=== PATIENT | female | born 1985 | race Caucasian/White ===

== ENCOUNTER 2018-02-19 05:22 | Inpatient (IN) | payer SELFPAY ==
[2018-02-19 05:44] LABS: #Eosinphils 0.2 thou/uL (0.0-0.7); #Lymphocytes 2.5 thou/uL (1.20-3.40); #Monocytes 0.5 thou/uL (0.11-0.59); #Neutrophils 6.8 thou/uL (1.40-6.50); %Basophils 0.4 % (0.0-1.0); %Eosinophils 1.9 % (0.0-10.0); %Lymphocytes 24.9 % (21.0-51.0); %Monocytes 5.4 % (0.0-10.0); %Neutrophils 67.5 % (42.0-75.0); Hemoglobin 16.5 g/dL (12.0-16.0); Mean Corpuscular HGB CONC 34.1 g/dL (32.0-36.0); Mean Corpuscular Hemoglobin 34.1 pg (27.0-31.0); Mean Platelet Volume 7.1 fL (7.4-10.4); Platelet Count 249 thou/uL (130-400); RBC Distribution Width 14.7 % (11.5-14.5); Red Blood Cell (RBC) Count 4.83 mill/uL (4.20-5.40); White Blood Cell (WBC) Count 10.1 thou/uL (4.8-10.8)
[2018-02-19] MEDS ORDERED: Lorazepam 2 MG/ML VIAL ONE (05:45)
[2018-02-19] MEDS ORDERED: Morphine 4 MG/ML VIAL ONE ×2 (05:45→09:28)
[2018-02-19] MEDS ORDERED: Ondansetron HCl/PF 4 MG/2 ML Vial ONE (05:45)
[2018-02-19 06:12] LABS: CKMB 0.5 ng/mL (0-6.6); Troponin I Less than 0.010 ng/mL (< 0.028)
[2018-02-19 06:24] LABS: ALT (SGPT) 17 U/L (8-55); AST (SGOT) 94 U/L (5-34); Albumin 4.4 g/dL (3.5-5.0); Alcohol 30 mg/dL (Less than 10); Alkaline Phosphatase 160 U/L (40-150); Anion Gap 25 mmol/L (10-20); BUN (Urea Nitrogen) 5 mg/dL (7.0-18.7); Bilirubin, Total 1.8 mg/dL (0.2-1.2); Calc. Creatinine Clearance 0 mL/min (70-130); Calcium 9.5 mg/dL (7.8-10.44); Carbon Dioxide 20 mmol/L (22-29); Chloride 97 mmol/L (98-107); Estimated GFR-MDRD 90; Globulin 4.4 g/dL (2.4-3.5); Glucose 212 mg/dL (70-105); Lipase 92 U/L (8-78); Potassium 3.1 mmol/L (3.5-5.1); Protein, Total 8.8 g/dL (6.0-8.3); Sodium 139 mmol/L (136-145)
[2018-02-19] MEDS ORDERED: Promethazine HCl 25 MG/ML VIAL ONE ×2 (08:07→09:28)
[2018-02-19 09:44] LABS: Bilirubin Small (Negative); Blood, Urine Negative (Negative); Clarity CLEAR (Clear); Glucose, Urine (Dipstick) 100 mg/dL (Negative); Leukocyte Small (Negative); Nitrite Positive (Negative); Protein, Urine (Dipstick) 100 mg/dL (Neg-Trace); Specific Gravity, Urine 1.035 (1.002-1.036)
[2018-02-19 09:46] LABS: Hyaline Casts/LPF 0-3 HYALINE CAST LPF (0-3 Hyaline); Pathc Cast-AUWi Flag 0.14 (0-2.49)
[2018-02-19 09:53] LABS: Bacteria/HPF 1+ HPF (None Seen); RBC/HPF 0-3 HPF (0-3); Renal Epithelial 0-3 HPF (0-3)
[2018-02-19 10:29] LABS: Pregnancy Test - Urine (BHCG) Negative (Negative); Pregu Control Background? CLEAR/WHITE (CLR/WHITE); Pregu Control Bar Appear? YES (CONTROL BAR); Specific Gravity 1.035 (1.002-1.036)
[2018-02-19] MEDS ORDERED: Acetaminophen 325 MG TAB PO PRN ×2 (11:33→12:10)
[2018-02-19] MEDS ORDERED: Ondansetron ODT 4 MG TAB SL PRN (11:33)
[2018-02-19] MEDS ORDERED: HYDROcodone/Acetaminophen 5/325 mg Tablet PO PRN ×2 (11:33)
[2018-02-19] MEDS ORDERED: Sodium Chloride 0.9% 1,000 ML IV SCH (11:33)
[2018-02-19] MEDS ORDERED: Ondansetron HCl/PF 4 MG/2 ML Vial IVP PRN (11:33)
[2018-02-19] MEDS: Potassium Chloride 20 MEQ in Premix Bag 1 BAG IVPB SCH ×2 (11:35→11:36)
--- NOTE | 2018-02-19 11:39 | HP ---
PRIMARY CARE PHYSICIAN: [facility] call admission. REASON FOR ADMISSION: Intractable nausea, vomiting, epigastric abdominal pain, suspected pancreatitis, dehydration. HISTORY OF PRESENT ILLNESS: This is a 32-year-old female, who has a remote history of alcohol abuse. She quit drinking alcohol for a period of time. Last Thursday, patient drank one bottle of vodka. Since then, patient has epigastric abdominal pain, which radiates to back, associated with nausea and vomiting. The patient is not able to keep anything down. She only tried to eat crackers a couple of days ago, but she was not holding. Her pain kept getting worse. She was feeling dehydrated, weak, and dizzy. She had today little amount of diarrhea. She denies any hematemesis. She denies any hematochezia or melena. She denies any fever or chills. She denies any UTI symptoms. She denies any loss of consciousness or fall or syncope. She denies any chest pain, heartburn, palpitations. In emergency room today, the patient had routine blood test done, which showed hypokalemia, anion gap acidosis, and abnormal LFT. Her lipase was slightly elevated. Her urinalysis was also suggestive of UTI. Patient reports that, when she was alcoholic at that time, she had pancreatitis in the past and her presentation is similar to past. PAST MEDICAL HISTORY: History of alcoholic pancreatitis, history of alcohol abuse, obesity, irritable bowel syndrome. PAST SURGICAL HISTORY: Appendicectomy. PAST PSYCHIATRIC HISTORY: Reviewed and negative. SOCIAL HISTORY: The patient has a history of alcoholism in the past, but she quit drinking for several months and then she restarted drinking since Thursday. She smokes variable number of cigarettes on a daily basis. She denies any other illicit drugs. FAMILY HISTORY: No strong family history of premature coronary artery disease, stroke, or cancer. ALLERGIES: No known drug allergy. CURRENT HOME MEDICATIONS: Patient is not taking any prescribed or non- prescribed medication. No history of NSAID abuse. EMERGENCY ROOM COURSE: Patient is given IV fluid 3 liter and maintenance fluid started, potassium chloride 20 mEq, Phenergan 25 mg, Zofran, Ativan 1 mg, and morphine 8 mg given. REVIEW OF SYSTEMS: All review of systems reviewed with patient and negative except as mentioned in HPI. PHYSICAL EXAMINATION: VITAL SIGNS: Currently, blood pressure 121/101, pulse 132 on admission and improved to 104, respiratory rate 26 and now 18, saturation 98% on room air, weight 102.1 kilograms. GENERAL: Patient is currently alert, awake, mild distress due to abdominal pain. She is slightly tachycardic and hypertensive. HEENT: Head: Normocephalic, atraumatic. Eyes: Pupils round, reactive to light. Extraocular muscle intact. ENT: Oropharynx within normal limits. Dry mucous membrane, no oral lesion, no pharyngeal erythema, no exudate. NECK: Supple, no JVD, no thyromegaly, no carotid bruit, no jugular venous distention. LUNGS: Clear to auscultation without any rhonchi or rales. CARDIAC: S1 and S2 regular, tachycardia, no murmur, no gallop, no rub. ABDOMEN: Patient does have epigastric tenderness. A little bit of right upper quadrant tenderness. No Cotter sign. No suprapubic tenderness. Bowel sounds present, no organomegaly, no mass. Obesity limiting examination. BACK EXAMINATION: Unremarkable, no point tenderness. EXTREMITIES: Upper extremities, passive movement of all joints are normal. Lower extremities, no edema. Good distal pulsation. SKIN: No skin rash. PSYCHIATRIC: Anxious affect. NEUROLOGIC: The patient is moving all 4 limbs. The patient does have mild tremors of the upper extremity when outstretched; otherwise, no focal neurological deficit noted. SIGNIFICANT LABORATORY DATA: EKG showing sinus tachycardia, nonspecific ST-T changes. CBC: WBC 10.1, hemoglobin 16.5, MCV 100, platelets 249. BMP: Sodium 139, potassium 3.1, chloride 97, carbon dioxide 20, anion gap 25, BUN 5, creatinine 0.74, glucose 212, calcium 9.5. LFT: AST 94, ALT 17, alkaline phosphatase was 160, albumin 4.4, lipase 92, CK-MB 0.5, troponin I less than 0.010. Urinalysis suggestive of urinary tract infection. test negative. Alcohol level 30. ASSESSMENT AND PLAN: 1. Acute epigastric abdominal pain. Differential diagnosis is acute pancreatitis secondary to alcohol abuse. Alcoholic gastritis is also a possibility. At this point, the patient will need right upper quadrant ultrasound to rule out any gallbladder pathology. The patient will need symptomatic treatment with pain medication with morphine 4 mg q.4 hourly p.r.n. We will treat with Protonix 40 mg IV q.12 hourly for possible alcoholic gastritis. At this point, the patient does not have any alarming features, so we will treat symptomatically, and if the patient's condition improves, then she will not need any gastroenterology evaluation, but if the patient has persistently epigastric pain or she has any signs of GI bleed, then we will consider GI consultation for possible need of upper endoscopy, but at this point , the patient does not need upper endoscopy. 2. Acute pancreatitis, likely secondary to alcohol abuse, given her elevated lipase. We will check lipid profile. We will obtain ultrasound of right upper quadrant. We will check CRP, magnesium, phosphorus. We will keep her on clear liquid diet only as tolerated and to treat symptomatically with pain control with morphine and IV fluid as well as Protonix for epigastric pain. 3. Intractable nausea and vomiting, secondary to problem #1 and #2. At this point, the patient needs symptomatic treatment. We will try Phenergan as well as Zofran p.r.n. basis. 4. Hypokalemia, likely due to intractable nausea and vomiting. The patient will be given IV fluid with potassium as patient is not tolerating IV potassium , it brown in her IV, which was given in the emergency room. 5. Anion gap acidosis, likely due to alcohol and dehydration. Patient will be hydrated with IV fluid and we will repeat BMP tomorrow. 6. Urinary tract infection. We will send urine culture and start Rocephin 1 gram q.24 hours. 7. Abnormal liver function tests. Patient LFT profile is consistent with hepatocellular pattern. We will check ultrasound right upper quadrant. We will check hepatitis profile, most likely related with alcohol abuse and we will repeat LFT tomorrow. 8. Alcoholism. Patient tried to treat and now restarted. The patient is at risk for withdrawal. We will provide Ativan p.r.n. basis. We will also give her banana bag with thiamine, folic acid, along with IV fluid and we will monitor. 9. Macrocytic anemia. Again, patient will need folic acid, vitamin B12, thiamine therapy. 10. Obesity. Dietary education given, weight loss education given. Healthy lifestyle measures discussed with the patient. 11. Deep venous thrombosis prophylaxis. Heparin 5000 units subcutaneous twice daily. 12. Gastrointestinal prophylaxis. Patient is already on Protonix 40 mg IV b.i.d. 13. Code status: The patient is FULL CODE. Patient does not have any surrogate decision maker. Disposition plan based on clinical course. We are expecting patient's stay in hospital more than 2 midnights. Plan of care discussed with the patient in detail. DIO
[2018-02-19] MEDS ORDERED: hydrALAZINE 20 MG/ML VIAL SLOW IVP PRN (12:10)
[2018-02-19] MEDS ORDERED: Zolpidem Tartrate 5 MG TAB PO PRN (12:10)
[2018-02-19] MEDS ORDERED: Loratadine 10 MG TAB PO PRN (12:10)
[2018-02-19] MEDS ORDERED: cloNIDine 0.1 MG TAB PO PRN (12:10)
[2018-02-19] MEDS ORDERED: Sodium Chloride 0.65% Nasal 44 ML BOT EA NARE PRN (12:10)
[2018-02-19] MEDS ORDERED: Promethazine HCl 25 MG/ML VIAL IM/IV PRN (12:10)
[2018-02-19] MEDS ORDERED: Senokot 8.6 MG TAB PO PRN (12:10)
[2018-02-19] MEDS ORDERED: Ondansetron ODT 4 MG TAB PO PRN (12:10)
[2018-02-19] MEDS ORDERED: Lorazepam 2 MG/ML VIAL SLOW IVP PRN (12:10)
[2018-02-19] MEDS ORDERED: Eucerin (Mineral Oil/Petrolatum,White) 30 gm Jar TOP PRN (12:10)
[2018-02-19] MEDS ORDERED: Milk Of Magnesia 30 ML UDCUP PO PRN (12:10)
[2018-02-19] MEDS ORDERED: Mag-Al 1200 mg/1200 mg/30 ML UDCUP PO PRN (12:10)
[2018-02-19] MEDS ORDERED: Lorazepam 1 MG TAB PO PRN (12:10)
[2018-02-19] MEDS ORDERED: Loperamide HCl 2 MG CAP PO PRN (12:10)
[2018-02-19] MEDS ORDERED: Artificial Tears 18 DROP/0.9 ML EA EYE PRN (12:10)
[2018-02-19] MEDS ORDERED: Diabetic Tussin 200 MG/10 ML UDCUP PO PRN (12:10)
[2018-02-19] MEDS ORDERED: Chloraseptic Spray 180 ml Bottle PO PRN (12:10)
[2018-02-19 12:14] VITALS: BMI 37.4
[2018-02-19 13:00] LABS: CRP (Inflammatory) 0.67 mg/dL (= or < 0.5); Phosphorus 2.6 mg/dL (2.3-4.7)
[2018-02-19] MEDS ORDERED: cefTRIAXone\\ROCEPHIN 1 GM in Sodium Chloride 0.9% 100 ML IVPB SCH (13:00)
[2018-02-19 13:23] LABS: HBCM Index 0.12 S/CO (0-0.79); HBSAg Index 0.26 S/CO (0-0.99); Hep A IgM AB Non-Reactive (NonReactive); Hep A IgM S/CO 0.22 S/CO (0-0.79); Hep B Surf Ag Non-Reactive S/CO (NonReactive); Hep C IgG Ab Non-Reactive (NonReactive); Hep C Index 0.13 S/CO (0-0.79); Hepatitis B Core IGM Abs Non-Reactive (NonReactive)
[2018-02-19] MEDS: Morphine 4 MG/ML VIAL SLOW IVP PRN ×3 (13:40→22:03)
[2018-02-19] MEDS: NS 0.9% w/ 20 MEQ KCL 1,000 ML/1,000 ML BAG IV SCH ×2 (13:41→20:53)
--- NOTE | 2018-02-19 14:20 | ULT ---
RIGHT UPPER QUADRANT SONOGRAM: HISTORY: Abdominal pain. FINDINGS: The gallbladder is distended, up to 11.6 cm. No wall thickening or stones are apparent. The common duct is 0.4 cm. The liver is diffusely echogenic. Posteriorly, within the left liver lobe, is a lob ular, somewhat irregular shaped, hypoechoic lesion, measuring up to 6.6 x 4.4 x 5.9 cm in greatest di ameter. It could represent fatty sparing or an actual mass. No free fluid is evident within the abdomen. IMPRESSION: 1. Hypoechoic lesion/mass within the posterior aspect, left liver lobe. Please consider CT abdomen with and without IV contrast, employing a liver protocol, for better characterization. 2. Gallbladder distention without signs of inflammation. This could be related to a fasting state. Clinical correlation regarding other signs and symptoms of acute cholecystitis is required. No evid ence of central biliary obstruction. POS: ARMANDO
[2018-02-19] MEDS: cefTRIAXone\\ROCEPHIN 1 GM in Sodium Chloride 0.9% 100 ML IVPB SCH (16:04)
[2018-02-19] MEDS: Promethazine HCl 25 MG in Sodium Chloride 0.9% 50 ML IVPB PRN (20:52)
[2018-02-19] MEDS: Pantoprazole 40 MG VIAL IVP SCH (20:53)
[2018-02-20] MEDS: NS 0.9% w/ 20 MEQ KCL 1,000 ML/1,000 ML BAG IV SCH ×2 (01:23→09:35)
[2018-02-20] MEDS: Morphine 4 MG/ML VIAL SLOW IVP PRN ×5 (02:08→20:20)
[2018-02-20] MEDS: HYDROcodone/Acetaminophen 5/325 mg Tablet PO PRN ×3 (03:07→22:06)
[2018-02-20] MEDS: Promethazine HCl 25 MG in Sodium Chloride 0.9% 50 ML IVPB PRN ×3 (04:11→17:08)
[2018-02-20 05:10] LABS: #Eosinphils 0.2 thou/uL (0.0-0.7); #Lymphocytes 1.4 thou/uL (1.20-3.40); #Monocytes 0.3 thou/uL (0.11-0.59); #Neutrophils 2.6 thou/uL (1.40-6.50); %Basophils 0.4 % (0.0-1.0); %Eosinophils 4.2 % (0.0-10.0); %Lymphocytes 31.1 % (21.0-51.0); %Monocytes 5.9 % (0.0-10.0); %Neutrophils 58.5 % (42.0-75.0); Hemoglobin 12.1 g/dL (12.0-16.0); Mean Corpuscular HGB CONC 34.3 g/dL (32.0-36.0); Mean Corpuscular Hemoglobin 35.4 pg (27.0-31.0); Mean Platelet Volume 7.9 fL (7.4-10.4); PLT Morphology Comment Appears Decreased; Platelet Count 93 thou/uL (130-400); RBC Distribution Width 14.7 % (11.5-14.5); Red Blood Cell (RBC) Count 3.43 mill/uL (4.20-5.40); White Blood Cell (WBC) Count 4.5 thou/uL (4.8-10.8)
[2018-02-20 05:13] LABS: ALT (SGPT) 9 U/L (8-55); AST (SGOT) 50 U/L (5-34); Albumin 3.1 g/dL (3.5-5.0); Alkaline Phosphatase 88 U/L (40-150); Anion Gap 13 mmol/L (10-20); BUN (Urea Nitrogen) 5 mg/dL (7.0-18.7); Bilirubin, Total 1.8 mg/dL (0.2-1.2); Calc. Creatinine Clearance 224 mL/min (70-130); Calcium 7.4 mg/dL (7.8-10.44); Carbon Dioxide 23 mmol/L (22-29); Cardiac Risk 14.1 (Less than 4.5); Chloride 104 mmol/L (98-107); Cholesterol 212 mg/dl (< 200 Desired); Estimated GFR-MDRD Greater than 90; Globulin 2.8 g/dL (2.4-3.5); Glucose 146 mg/dL (70-105); HDL Cholesterol 15 mg/dL (>60 Neg Risk); LDL Cholesterol, Calculated 158 mg/dL; Lipase 38 U/L (8-78); Potassium 3.5 mmol/L (3.5-5.1); Protein, Total 5.9 g/dL (6.0-8.3); Sodium 136 mmol/L (136-145); Triglycerides 195 mg/dL (Less than 150)
[2018-02-20] MEDS: Ondansetron HCl/PF 4 MG/2 ML Vial IVP PRN ×3 (07:17→22:07)
[2018-02-20] MEDS ORDERED: Multivitamins, Adult 10 ML in Sodium Chloride 0.9% 500 ML IV SCH (09:00)
[2018-02-20] MEDS ORDERED: Multivit, Adult Inj 10 ML VIAL IV SCH (09:00)
[2018-02-20] MEDS ORDERED: Enoxaparin Sodium 40 MG/0.4 ML SYRINGE SC SCH (09:00)
[2018-02-20] MEDS: Cyanocobalamin (Vitamin B-12) 1,000 MCG TAB PO SCH (09:27)
[2018-02-20] MEDS: Saccharomyces boulardii 250 MG CAP PO SCH (09:27)
[2018-02-20] MEDS: Folic Acid 1 MG TAB PO SCH (09:27)
[2018-02-20] MEDS: Pantoprazole 40 MG VIAL IVP SCH ×2 (09:29→20:21)
--- NOTE | 2018-02-20 10:05 | PDOC.PN ---
- Subjective Encounter Start Date: 02/20/18 Encounter Start Time: 08:00 -: old records requested/rev pt feels better, no abdominal pain, no nausea and vomiting, no fever - Objective Resuscitation Status: Resuscitation Status FULL:Full Resuscitation MAR Reviewed: Yes Vital Signs & Weight: Vital Signs (12 hours) Temp Pulse Resp BP BP Pulse Ox 02/20/18 07:27 98.2 F 82 18 135/99 H 97 02/20/18 04:00 98.2 F 84 16 121/92 H 121/92 H 98 02/20/18 02:32 98 02/20/18 00:00 98.2 F 78 16 118/82 118/82 97 Weight Admit Weight 224 lb 13.944 oz Weight 224 lb 13.944 oz I&O: 02/19/18 02/20/18 02/21/18 06:59 06:59 06:59 Intake Total 3300 Balance 3300 Result Diagrams: 02/20/18 04:02 02/20/18 04:02 Radiology Reviewed by me: Yes (US GB noted) Phys Exam - Physical Examination Constitutional: NAD HEENT: PERRLA, moist MMs, sclera anicteric Neck: no JVD, supple Respiratory: no wheezing, no rales, no rhonchi Cardiovascular: RRR, no significant murmur, no rub Gastrointestinal: soft, non-tender, no distention, positive bowel sounds Musculoskeletal: no edema, pulses present Neurological: non-focal, normal sensation, moves all 4 limbs Psychiatric: normal affect, A&O x 3 Skin: no rash, normal turgor Dx/Plan (1) Liver mass, left lobe Code(s): R16.0 - HEPATOMEGALY, NOT ELSEWHERE CLASSIFIED Status: Acute (2) Abnormal LFTs Code(s): R94.5 - ABNORMAL RESULTS OF LIVER FUNCTION STUDIES Status: Acute (3) Acute epigastric pain Code(s): R10.13 - EPIGASTRIC PAIN Status: Acute (4) Acute pancreatitis Code(s): K85.90 - ACUTE PANCREATITIS WITHOUT NECROSIS OR INFECTION, UNSP Status: Acute (5) Hypokalemia Code(s): E87.6 - HYPOKALEMIA Status: Acute (6) Intractable nausea and vomiting Code(s): R11.2 - NAUSEA WITH VOMITING, UNSPECIFIED Status: Acute (7) Leucopenia Code(s): D72.819 - DECREASED WHITE BLOOD CELL COUNT, UNSPECIFIED Status: Acute (8) Thrombocytopenia Code(s): D69.6 - THROMBOCYTOPENIA, UNSPECIFIED Status: Acute (9) UTI (urinary tract infection) Status: Acute (10) Alcohol abuse Code(s): F10.10 - ALCOHOL ABUSE, UNCOMPLICATED Status: Chronic (11) Macrocytic anemia Code(s): D53.9 - NUTRITIONAL ANEMIA, UNSPECIFIED Status: Chronic (12) Obesity (BMI 30-39.9) Code(s): E66.9 - OBESITY, UNSPECIFIED Status: Chronic (13) High anion gap metabolic acidosis Code(s): E87.2 - ACIDOSIS Status: Resolved - Plan cont current plan of care, continue antibiotics * lipase improved, potassium corrected, symptoms controlled * today will advance diet * i spoke with pt and told result of US RUQ and liver mass on left lobe of liver and then I ordered CT abdomen with contrast but pt refused to go for that and she wanted to do after discharge with PCP, I told that it is possible that it could be malignant but still she does not want to be done in hospital * medication reviewed as below * symptomatic treatment * continue rocephin and follow culture * pt wants to go home but i think earliest we can discharge tomorrow pending culture result and see how she does with diet today. Review of Systems - Review of Systems Eyes: negative: Pain, Vision Change, Conjunctivae Inflammation, Eyelid Inflammation, Redness, Other ENT: negative: Ear Pain, Ear Discharge, Nose Pain, Nose Discharge, Nose Congestion, Mouth Pain, Mouth Swelling, Throat Pain, Throat Swelling, Other Respiratory: negative: Cough, Dry, Shortness of Breath, Hemoptysis, SOB with Excertion, Pleuritic Pain, Sputum, Wheezing Cardiovascular: negative: chest pain, palpitations, orthopnea, paroxysmal nocturnal dyspnea, edema, light headedness, other Gastrointestinal: negative: Nausea, Vomiting, Abdominal Pain, Diarrhea, Constipation, Melena, Hematochezia, Other Genitourinary: negative: Dysuria, Frequency, Incontinence, Hematuria, Retention , Other Musculoskeletal: negative: Neck Pain, Shoulder Pain, Arm Pain, Back Pain, Hand Pain, Leg Pain, Foot Pain, Other Skin: negative: Rash, Lesions, Phil, Bruising, Other - Medications/Allergies Allergies/Adverse Reactions: Allergies Allergy/AdvReac Type Severity Reaction Status Date / Time No Known Allergies Allergy Verified 02/19/18 12:18 Medications: Current Medications Acetaminophen (Tylenol) 650 mg PO Q4H PRN PRN Reason: Headache/Fever or Pain Hydrocodone Bitart/Acetaminophen ([place] 5/325) 1 tab PO Q4H PRN PRN Reason: Moderate Pain (4-6) Last Admin: 02/20/18 09:29 Dose: 1 tab Al Hydroxide/Mg Hydroxide (Maalox) 30 ml PO Q6H PRN PRN Reason: Heartburn or Indigestion Artificial Tears (Tears Naturale) 0 drop EA EYE PRN PRN PRN Reason: Dry Eyes Clonidine (Catapres) 0.1 mg PO Q4H PRN PRN Reason: Systolic BP > 180 Cyanocobalamin (Vitamin B-12) 1,000 mcg PO DAILY [facility] Last Admin: 02/20/18 09:27 Dose: 1,000 mcg Folic Acid (Folvite) 1 mg PO DAILY [facility] Last Admin: 02/20/18 09:27 Dose: 1 mg Guaifenesin (Robitussin Sf) 200 mg PO Q4H PRN PRN Reason: Cough Hydralazine HCl (Apresoline) 10 mg SLOW IVP Q4H PRN PRN Reason: Systolic BP > 180 Ceftriaxone Sodium 1 gm/ (Sodium Chloride) 100 mls @ 200 mls/hr IVPB Q24HR [facility] Last Admin: 02/19/18 16:04 Dose: 100 mls Promethazine HCl 25 mg/ Sodium (Chloride) 51 mls @ 204 mls/hr IVPB Q6H PRN PRN Reason: Nausea/Vomiting Last Admin: 02/20/18 04:11 Dose: 51 mls Potassium Chloride/Sodium Chloride (Ns 0.9% W/ 20 Meq Kcl) 1,000 ml in 1,000 mls @ 75 mls/hr IV .[id number] [facility] Last Admin: 02/20/18 09:35 Dose: 1,000 mls Loperamide HCl (Imodium) 2 mg PO PRN PRN PRN Reason: Diarrhea/Loose Stools Loratadine (Claritin) 10 mg PO DAILYPRN PRN PRN Reason: Sinus Symptoms Lorazepam (Ativan) 1 mg SLOW IVP Q4H PRN PRN Reason: Anxiety/Agitation Lorazepam (Ativan) 1 mg PO Q4H PRN PRN Reason: Anxiety/Agitation Magnesium Hydroxide (Milk Of Magnesium) 30 ml PO DAILYPRN PRN PRN Reason: Constipation Mineral Oil/White Petrolatum (Eucerin Cream) 0 gm TOP BIDPRN PRN PRN Reason: Dry Skin Morphine Sulfate (Morphine) 4 mg SLOW IVP Q4H PRN PRN Reason: Pain Last Admin: 02/20/18 07:15 Dose: 4 mg Ondansetron HCl (Zofran Odt) 4 mg PO Q6H PRN PRN Reason: Nausea/Vomiting Last Admin: 02/19/18 16:08 Dose: 4 mg Ondansetron HCl (Zofran) 4 mg IVP Q6H PRN PRN Reason: Nausea/Vomiting Last Admin: 02/20/18 07:17 Dose: 4 mg Pantoprazole Sodium (Protonix) 40 mg IVP Q12HR [facility] Last Admin: 02/20/18 09:29 Dose: 40 mg Phenol (Chloraseptic [place] 180 Ml Bot) 0 ml PO PRN PRN PRN Reason: Sore Throat Promethazine HCl (Phenergan) 25 mg IM/IV Q6H PRN PRN Reason: Nausea/Vomiting Last Admin: 02/19/18 13:40 Dose: 25 mg Saccharomyces Boulardii (Florastor) 250 mg PO DAILY [facility] Last Admin: 02/20/18 09:27 Dose: 250 mg Senna (Senokot) 2 tab PO HSPRN PRN PRN Reason: Constipation Sodium Chloride (Dane Nasal [place] 0.65%) 0 ml EA NARE QIDPRN PRN PRN Reason: Nasal Congestion Sodium Chloride (Flush - Normal Saline) 10 ml IVF Q12HR [facility] Last Admin: 02/19/18 20:54 Dose: 10 ml Sodium Chloride (Flush - Normal Saline) 10 ml IVF PRN PRN PRN Reason: Saline Flush Thiamine HCl (Thiamine) 100 mg PO DAILY [facility] Last Admin: 02/20/18 09:27 Dose: 100 mg Zolpidem Tartrate (Ambien) 5 mg PO HSPRN PRN PRN Reason: Insomnia
[2018-02-20] MEDS: cefTRIAXone\\ROCEPHIN 1 GM in Sodium Chloride 0.9% 100 ML IVPB SCH (17:08)
[2018-02-21] MEDS: NS 0.9% w/ 20 MEQ KCL 1,000 ML/1,000 ML BAG IV SCH (01:11)
[2018-02-21] MEDS: Morphine 4 MG/ML VIAL SLOW IVP PRN ×2 (03:35→08:03)
[2018-02-21] MEDS: Promethazine HCl 25 MG in Sodium Chloride 0.9% 50 ML IVPB PRN ×2 (04:59→13:47)
--- NOTE | 2018-02-21 08:50 | PDOC.PN ---
- Subjective Encounter Start Date: 02/21/18 Encounter Start Time: 08:46 Subjective: nsg notes rev, petra ovn, no new c/o but still has abd pain that req IV -: morphine this AM. 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 so she -: is definitely going home today, either D/C or AMA - Objective Resuscitation Status: Resuscitation Status FULL:Full Resuscitation Vital Signs & Weight: Vital Signs (12 hours) Temp Pulse Resp BP BP Pulse Ox 02/21/18 07:47 98.3 F 98 16 119/84 97 02/21/18 04:00 98.8 F 83 18 122/88 122/88 98 02/21/18 02:00 96 Weight Admit Weight 224 lb 13.944 oz Weight 224 lb 13.944 oz I&O: 02/20/18 02/21/18 02/22/18 06:59 06:59 06:59 Intake Total 3300 Balance 3300 Result Diagrams: 02/20/18 04:02 02/20/18 04:02 Phys Exam - Physical Examination Constitutional: NAD lying in hospital bed HEENT: PERRLA, moist MMs Respiratory: no wheezing, no rales, no rhonchi, clear to auscultation bilateral Cardiovascular: RRR, no significant murmur, no rub Gastrointestinal: soft, positive bowel sounds slightly tender to mild palpation throughout Musculoskeletal: no edema, pulses present Neurological: moves all 4 limbs Psychiatric: normal affect, A&O x 3 Dx/Plan - Plan (1) Liver mass, left lobe Code(s): R16.0 - HEPATOMEGALY, NOT ELSEWHERE CLASSIFIED Status: Acute (2) Abnormal LFTs Code(s): R94.5 - ABNORMAL RESULTS OF LIVER FUNCTION STUDIES Status: Acute (3) Acute epigastric pain Code(s): R10.13 - EPIGASTRIC PAIN Status: Acute (4) Acute pancreatitis Code(s): K85.90 - ACUTE PANCREATITIS WITHOUT NECROSIS OR INFECTION, UNSP Status: Acute IVF, pain control bland diet d/w pt - will d/c morphine IV and monitor symptomatic mgmt of nausea lipase improved - recheck with labs (5) Hypokalemia recheck CBMP this AM (6) Intractable nausea and vomiting improved, continue anti-emetic regimen (7) Leucopenia recheck CBC this AM (8) Thrombocytopenia hemodynamically stable recheck CBC this AM (9) UTI (urinary tract infection) pending urine Cx continue (10) Alcohol abuse Code(s): F10.10 - ALCOHOL ABUSE, UNCOMPLICATED Status: Chronic (11) Macrocytic anemia Code(s): D53.9 - NUTRITIONAL ANEMIA, UNSPECIFIED Status: Chronic (12) Obesity (BMI 30-39.9) Code(s): E66.9 - OBESITY, UNSPECIFIED Status: Chronic (13) High anion gap metabolic acidosis Code(s): E87.2 - ACIDOSIS Status: Resolved hepatic lesion further evaluation offered but declined by pt who would like to pursue this on an outpt basis with her PCP pt currently does not have a PCP nor does she have a definite plan of who she will see but does state she will "call around" tomorrow and find the first available physician to see her diet: bland activity: as miguel dvt ppx d/w pt that if her abd pain is improved and no longer requires narcotics, CMP is reasonable, and UCx available then she may be safely d/c later today; otherwise, she states she will go AMA d/w pt and her bedside nsg
[2018-02-21] MEDS: Saccharomyces boulardii 250 MG CAP PO SCH (09:14)
[2018-02-21] MEDS: Cyanocobalamin (Vitamin B-12) 1,000 MCG TAB PO SCH (09:15)
[2018-02-21] MEDS: Pantoprazole 40 MG VIAL IVP SCH (09:15)
[2018-02-21] MEDS: Folic Acid 1 MG TAB PO SCH (09:15)
[2018-02-21 09:41] LABS: ALT (SGPT) 10 U/L (8-55); AST (SGOT) 70 U/L (5-34); Albumin 3.1 g/dL (3.5-5.0); Alkaline Phosphatase 111 U/L (40-150); Anion Gap 11 mmol/L (10-20); BUN (Urea Nitrogen) Less than 4 mg/dL (7.0-18.7); Bilirubin, Total 1.5 mg/dL (0.2-1.2); Calc. Creatinine Clearance 196 mL/min (70-130); Calcium 7.6 mg/dL (7.8-10.44); Carbon Dioxide 22 mmol/L (22-29); Chloride 105 mmol/L (98-107); Estimated GFR-MDRD Greater than 90; Globulin 2.9 g/dL (2.4-3.5); Glucose 135 mg/dL (70-105); Lipase 22 U/L (8-78); Potassium 3.5 mmol/L (3.5-5.1); Sodium 134 mmol/L (136-145)
[2018-02-21 09:46] LABS: #Eosinphils 0.2 thou/uL (0.0-0.7); #Lymphocytes 1.7 thou/uL (1.20-3.40); #Monocytes 0.3 thou/uL (0.11-0.59); %Basophils 0.7 % (0.0-1.0); %Eosinophils 3.8 % (0.0-10.0); %Lymphocytes 32.4 % (21.0-51.0); %Neutrophils 58.2 % (42.0-75.0); Hemoglobin 12.1 g/dL (12.0-16.0); Mean Corpuscular Hemoglobin 35.8 pg (27.0-31.0); Mean Platelet Volume 7.5 fL (7.4-10.4); PLT Morphology Comment Appears Decreased; Platelet Count 81 thou/uL (130-400); RBC Distribution Width 14.4 % (11.5-14.5); Red Blood Cell (RBC) Count 3.38 mill/uL (4.20-5.40); White Blood Cell (WBC) Count 5.2 thou/uL (4.8-10.8)
[2018-02-21 09:47] LABS: MDiff Complete? YES
[2018-02-21 17:25] VITALS: BP 115/80; TEMP 99
--- NOTE | 2018-02-27 12:19 | EKG ---
Test Reason : Blood Pressure : / mmHG Vent. Rate : 128 BPM Atrial Rate : 128 BPM P-R Int : 122 ms QRS Dur : 076 ms QT Int : 338 ms P-R-T Axes : 009 059 -21 degrees QTc Int : 493 ms Sinus tachycardia Nonspecific ST and T wave abnormality Abnormal ECG Confirmed by MITZY FAY ([id number]), video effects editor DMITRY PEREIRA ([id number] on 02/27/2018 12:19:03 PM Referred By: Confirmed By:MITZY FAY
== END 2018-02-21 17:29 | disposition home or self-care (01) | DRG 439 ==
LOC: ERS 05:22 → T4-A 10:06
PROVIDERS: ADMIT Internal Medicine; ATTEND Internal Medicine
DX: K85.20 Alcohol induced acute pancreatitis without necrosis or infection (principal); E87.2 Acidosis; N39.0 Urinary tract infection, site not specified; E86.0 Dehydration; E87.6 Hypokalemia; F10.20 Alcohol dependence, uncomplicated; Y90.9 Presence of alcohol in blood, level not specified; D53.9 Nutritional anemia, unspecified; E66.9 Obesity, unspecified; Z68.37 Body mass index [BMI] 37.0-37.9, adult; D69.6 Thrombocytopenia, unspecified
CPT/HCPCS: 36415; 76705; 80053; 80061; 80074; 80307; 81003; 81015; 81025; 82553; 83690; 83735; 84100; 84484; 85025; 86140; 87086; 93005; 96361; 96365; 96375; 96376; A4216; C9113; J0696; J1650; J2060; J2270; J2405; J2550; J3480; J7050; Q0162

== ENCOUNTER 2018-02-21 18:53 | Observation (INO) | payer SELFPAY ==
[2018-02-21 19:31] LABS: #Eosinphils 0.2 thou/uL (0.0-0.7); #Lymphocytes 1.4 thou/uL (1.20-3.40); #Monocytes 0.3 thou/uL (0.11-0.59); #Neutrophils 4.5 thou/uL (1.40-6.50); %Basophils 0.3 % (0.0-1.0); %Eosinophils 2.8 % (0.0-10.0); %Lymphocytes 22.6 % (21.0-51.0); %Monocytes 4.1 % (0.0-10.0); %Neutrophils 70.2 % (42.0-75.0); Hemoglobin 13.3 g/dL (12.0-16.0); Mean Corpuscular HGB CONC 34.5 g/dL (32.0-36.0); Mean Corpuscular Hemoglobin 35.6 pg (27.0-31.0); Mean Platelet Volume 7.9 fL (7.4-10.4); Platelet Count 129 thou/uL (130-400); RBC Distribution Width 14.7 % (11.5-14.5); Red Blood Cell (RBC) Count 3.73 mill/uL (4.20-5.40); White Blood Cell (WBC) Count 6.4 thou/uL (4.8-10.8)
[2018-02-21] MEDS ORDERED: Morphine 4 MG/ML VIAL ONE (19:41)
[2018-02-21] MEDS ORDERED: Ondansetron HCl/PF 4 MG/2 ML Vial ONE (19:41)
[2018-02-21 19:52] LABS: ALT (SGPT) 14 U/L (8-55); AST (SGOT) 85 U/L (5-34); Albumin 3.5 g/dL (3.5-5.0); Alkaline Phosphatase 122 U/L (40-150); Anion Gap 13 mmol/L (10-20); BUN (Urea Nitrogen) Less than 4 mg/dL (7.0-18.7); Bilirubin, Total 1.7 mg/dL (0.2-1.2); Calc. Creatinine Clearance 0 mL/min (70-130); Calcium 8.3 mg/dL (7.8-10.44); Carbon Dioxide 20 mmol/L (22-29); Chloride 105 mmol/L (98-107); Estimated GFR-MDRD Greater than 90; Globulin 3.4 g/dL (2.4-3.5); Glucose 152 mg/dL (70-105); Lipase 18 U/L (8-78); Potassium 3.4 mmol/L (3.5-5.1); Protein, Total 6.9 g/dL (6.0-8.3); Sodium 135 mmol/L (136-145)
--- NOTE | 2018-02-21 20:02 | RAD ---
CHEST ONE VIEW: HISTORY: Chest pain. COMPARISON: None. FINDINGS: There is a left suprahilar air space opacity. Mild blunting of the left lateral costophrenic sulcus. No pneumothorax. IMPRESSION: 1. Mild left suprahilar opacity may reflect bronchitis. 2. Small left lateral costophrenic sulcus blunting, likely reflective of a small effusion. POS: H
[2018-02-21] MEDS ORDERED: Promethazine HCl 25 MG/ML VIAL ONE (20:12)
[2018-02-21 20:43] LABS: Bilirubin Negative (Negative); Blood, Urine Negative (Negative); Clarity CLEAR (Clear); Glucose, Urine (Dipstick) Negative (Negative); Leukocyte Trace (Negative); Nitrite Negative (Negative); Protein, Urine (Dipstick) Negative (Neg-Trace)
[2018-02-21 20:45] LABS: Bacteria/HPF None Seen HPF (None Seen); Hyaline Casts/LPF 0-3 HYALINE CAST LPF (0-3 Hyaline); RBC/HPF 0-3 HPF (0-3); Squamous Epithelial 0-3 HPF (0-3)
[2018-02-21] MEDS ORDERED: Piperacillin/Tazobactam 4.5 GM VIAL ONE (23:11)
[2018-02-22 00:54] VITALS: BMI 35.9
[2018-02-22] MEDS ORDERED: Ondansetron HCl/PF 4 MG/2 ML Vial SLOW IVP PRN (01:40)
[2018-02-22] MEDS ORDERED: Ondansetron ODT 4 MG TAB PO PRN (01:40)
[2018-02-22] MEDS ORDERED: Promethazine HCl 25 MG in Sodium Chloride 0.9% 50 ML IVPB PRN (01:41)
[2018-02-22] MEDS ORDERED: Sodium Chloride 0.9% 1,000 ML IV SCH (01:45)
[2018-02-22] MEDS: cefTRIAXone\\ROCEPHIN 1 GM in Sodium Chloride 0.9% 100 ML IVPB SCH (01:59)
[2018-02-22] MEDS ORDERED: Loratadine 10 MG TAB PO PRN (06:58)
[2018-02-22] MEDS ORDERED: Calcium Carbonate 500 MG ChewTAB PO PRN (06:58)
[2018-02-22] MEDS ORDERED: Artificial Tears 18 DROP/0.9 ML EA EYE PRN (06:58)
[2018-02-22] MEDS ORDERED: Chloraseptic Spray 180 ml Bottle PO PRN (06:58)
[2018-02-22] MEDS ORDERED: Diabetic Tussin 200 MG/10 ML UDCUP PO PRN (06:58)
[2018-02-22] MEDS ORDERED: Eucerin (Mineral Oil/Petrolatum,White) 30 gm Jar TOP PRN (06:58)
[2018-02-22] MEDS ORDERED: Senokot 8.6 MG TAB PO PRN (06:58)
[2018-02-22] MEDS ORDERED: Acetaminophen 650 MG Suppository PR PRN (06:58)
[2018-02-22] MEDS ORDERED: hydrALAZINE 20 MG/ML VIAL SLOW IVP PRN (06:58)
[2018-02-22] MEDS ORDERED: Milk Of Magnesia 30 ML UDCUP PO PRN (06:58)
[2018-02-22] MEDS ORDERED: Sodium Chloride 0.65% Nasal 44 ML BOT EA NARE PRN (06:58)
[2018-02-22] MEDS ORDERED: Loperamide HCl 2 MG CAP PO PRN (06:58)
[2018-02-22] MEDS ORDERED: Mag-Al 1200 mg/1200 mg/30 ML UDCUP PO PRN (06:58)
[2018-02-22] MEDS ORDERED: NS 0.9% w/ 40 MEQ KCL 1,000 ML IV SCH (07:15)
[2018-02-22] MEDS ORDERED: ISOVUE-370 76%-LOCM 1 ML ONE (08:30)
[2018-02-22] MEDS: HYDROcodone/Acetaminophen 5/325 mg Tablet PO PRN ×3 (08:30→21:20)
[2018-02-22] MEDS: Promethazine HCl 25 MG/ML VIAL IM/IV PRN ×2 (08:31→19:35)
[2018-02-22 11:14] LABS: BHCG - Serum Negative (NEGATIVE); Pregs Control Background? CLEAR/WHITE (CLR/WHITE); Pregs Control Bar Appear? YES (CONTROL BAR)
[2018-02-22] MEDS ORDERED: Potassium Chloride 20 MEQ TAB PO SCH (11:45)
--- NOTE | 2018-02-22 12:51 | HP ---
PRIMARY CARE PHYSICIAN: [facility] call admission. REASON FOR ADMISSION: Nausea, vomiting, abdominal pain. HISTORY OF PRESENT ILLNESS: A 32-year-old female who was recently admitted in the hospital on 02/19/2018, at that time, patient's symptoms started with nausea and vomiting, and epigastric abdominal pain after drinking vodka. The patient was admitted for suspected pancreatitis. We hydrated her with IV fluid and we did a right upper quadrant ultrasound, which showed liver mass in left lobe of liver. During that admission, CT abdomen and liver mass protocol was offered, but patient refused to go for that. She had significant clinical improvement. She was tolerating her diet. Next day, the patient left against medical advice. Patient reports that her dog was not taken care by anybody and that is why she has to leave against medical advice. As she was told about liver tumor and that is why she came back to emergency room for further evaluation. She denies any abdominal distension. She is feeling nausea, vomiting. Her epigastric abdominal pain is also improving. Last night, she was evaluated in the emergency room and a routine blood test was unremarkable other than hypokalemia. Her TSH was slightly elevated. Patient also had little bit leukocyte esterase in her urinalysis, but she did not have any UTI symptoms. In the emergency room, the patient was tachycardic with pulse 133 and temperature was 100.5. This morning, the patient was hemodynamically stable. PAST MEDICAL HISTORY: History of alcoholic pancreatitis, history of alcohol abuse, irritable bowel syndrome, obesity. PAST SURGICAL HISTORY: Appendicectomy. PAST PSYCHIATRIC HISTORY: Reviewed and negative. SOCIAL HISTORY: The patient has history of alcoholism in the past. She quit drinking for several months and then restarted drinking recently. She smokes variable number of cigarettes on daily basis. She denies any other illicit drug abuse. FAMILY HISTORY: No strong family history of premature coronary artery disease, stroke or cancer. ALLERGIES: No known drug allergy. CURRENT HOME MEDICATIONS: Patient is not taking any prescribed or non- prescribed medication. No history of NSAID abuse. Patient only takes Prilosec 40 mg p.o. daily. EMERGENCY ROOM COURSE: Patient was given Zosyn, morphine 2 mg and then 4 mg, IV fluid 2 liter, Zofran 4 mg and Phenergan 12.5 mg. REVIEW OF SYSTEM: The following complete review of systems was negative, unless otherwise mentioned in the HPI or below: Constitutional: Weight loss or gain, ability to conduct usual activities. Skin: Rash, itching. Eyes: Double vision, pain. ENT/Mouth: Nose bleeding, neck stiffness, pain, tenderness. Cardiovascular: Palpitations, dyspnea on exertion, orthopnea. Respiratory: Shortness of breath, wheezing, cough, hemoptysis, fever or night sweats. Gastrointestinal: Poor appetite, abdominal pain, heartburn, nausea, vomiting, constipation, or diarrhea. Genitourinary: Urgency, frequency, dysuria, nocturia. Musculoskeletal: Pain, swelling. Neurologic/Psychiatric: Anxiety, depression. Allergy/Immunologic: Skin rash, bleeding tendency. All review of system reviewed with the patient and negative except as mentioned in the HPI. All review of system reviewed with patient and negative except as mentioned in HPI. PHYSICAL EXAMINATION: VITAL SIGNS: On arrival, blood pressure 118/96, pulse 133, respiratory rate 16 , temperature 100.5, saturation 98% on room air, weight 102.5 kilograms. GENERAL: The patient is currently alert, awake, no obvious acute distress. HEENT: Head: Normocephalic, atraumatic. Eyes: Pupils round, reactive to light. Extraocular muscle intact. ENT: Oropharynx within normal limits. Moist mucous membranes. No oral lesion, no pharyngeal erythema, no exudate. NECK: Supple, no JVD, no thyromegaly, no carotid bruit, no jugular venous distention. LUNGS: Clear to auscultation without any rhonchi or rales. CARDIAC: S1, S2 regular. No murmur, no gallop, no rub. ABDOMEN: No peritoneal sign, no organomegaly, no mass, no suprapubic tenderness. BACK: Unremarkable, no CVA tenderness. EXTREMITIES: Upper extremity, passive movement of all joints are normal. Lower extremity, no edema. Good distal pulsation. SKIN: No skin rash. HEMATOLOGICAL: No lymphadenopathy. SIGNIFICANT LABORATORY DATA: WBC 6.4, hemoglobin 13.3, MCV 103, platelet 129. Sodium 135, potassium 3.4, BUN less than 4, creatinine 0.69, anion gap 13, carbon dioxide 20, glucose 152, calcium 8.3. LFT: AST 85, ALT 14, alkaline phosphatase 122, albumin 3.5, lipase 18. TSH 5.99. test negative. Lactic acid 1.5. Urinalysis, leukocyte esterase trace. Blood culture negative. ASSESSMENT: 1. Nausea and vomiting. 2. Epigastric abdominal pain. 3. Abnormal liver function tests. 4. Hypokalemia. 5. New onset mild hypothyroidism. 6. Left lobe liver mass based on ultrasound. 7. Asymptomatic urinary tract infection. 8. Macrocytosis. 9. Thrombocytopenia. 10. Obesity with BMI 35. 11. Alcohol abuse. PLAN: Start Rocephin 1 gram q.24 hours. Continue IV fluid with potassium and give extra potassium for replacement of hypokalemia. Start Synthroid 25 mcg p.o. daily. Get CT abdomen with a liver mass protocol. Check urine drug screen. Follow up on urine culture and blood culture result. Diet as tolerated. Deep venous thrombosis prophylaxis not needed because we are expecting discharge in 24 hours. Gastrointestinal prophylaxis, Protonix 40 mg p.o. daily. CODE STATUS: The patient is FULL CODE. The patient does not have any surrogate decision maker. Disposition plan based on clinical course within 24 hours. Plan of care discussed with the patient in detail. DIO
[2018-02-22 13:33] LABS: Amphetamine Not Detected (NotDetected); Barbiturates Screen Not Detected (NotDetected); Benzodiazepine Screen Detected (NotDetected); Cocaine Metabolite Screen Not Detected (NotDetected); Medtox Control Line Valid? VALID (VALID); Medtox Reader # READER 4; Methadone Not Detected (NotDetected); Methamphetamine Not Detected (NotDetected); Opiate Screen Detected (NotDetected); Oxycodone Screen Not Detected (NotDetected); Phencyclidine (PCP) Not Detected (NotDetected); THC/Cannabinoid Screen Not Detected (NotDetected); Tricyclic Screen Not Detected (NotDetected)
--- NOTE | 2018-02-22 15:51 | CT ---
CT ABDOMEN AND PELVIS WITHOUT CONTRAST: Date: 02/22/18 HISTORY: Liver mass protocol. Normal ultrasound of liver. COMPARISON: Ultrasound 02/19/18. FINDINGS: Lung bases are clear, aside from some moderate atelectasis. No pericardial effusion. There is diffuse hepatic steatosis, severe. Mild fatty atrophy of the pancreas. There is trace right paracolic gutter fluid. No dilated loops of large or small bowel. No nephroureterolithiasis or hydroureteronephrosis. No seco ndary evidence of recently passed stone. On the noncontrast portion, as well as on the arterial and portal venous phase of contrast, there are multiple areas that are more hypodense than the remainder of the liver and somewhat nodular appearan ce with vessels coursing through them, likely sequelae of round foci of fatty deposition superimposed on diffuse hepatic steatosis. No solid enhancing mass is appreciated. The spleen is unremarkable. Adrenal glands are unremarkable. Moderate facet arthrosis lower lumbar spine. IMPRESSION: Diffuse hepatic steatosis with superimposed multiple numerous round foci of intraparenchymal fat. No solid enhancing suspicious mass. POS: DEL
[2018-02-22] MEDS: Zolpidem Tartrate 5 MG TAB PO PRN ×2 (20:26→21:20)
[2018-02-23] MEDS: cefTRIAXone\\ROCEPHIN 1 GM in Sodium Chloride 0.9% 100 ML IVPB SCH (02:18)
[2018-02-23 05:28] LABS: Anion Gap 13 mmol/L (10-20); BUN (Urea Nitrogen) Less than 4 mg/dL (7.0-18.7); Calc. Creatinine Clearance 243 mL/min (70-130); Calcium 7.7 mg/dL (7.8-10.44); Carbon Dioxide 20 mmol/L (22-29); Chloride 106 mmol/L (98-107); Estimated GFR-MDRD Greater than 90; Glucose 146 mg/dL (70-105); Potassium 3.5 mmol/L (3.5-5.1); Sodium 135 mmol/L (136-145)
[2018-02-23 06:00] LABS: #Eosinphils 0.2 thou/uL (0.0-0.7); #Lymphocytes 1.4 thou/uL (1.20-3.40); #Monocytes 0.5 thou/uL (0.11-0.59); #Neutrophils 2.6 thou/uL (1.40-6.50); %Basophils 0.3 % (0.0-1.0); %Eosinophils 4.5 % (0.0-10.0); %Neutrophils 55.3 % (42.0-75.0); Anisocytosis SLIGHT = 6-15 cells (100X) (0-5/hpf); Hemoglobin 11.2 g/dL (12.0-16.0); MDiff Complete? YES; Macrocytosis SLIGHT = 6-15 cells (100X) (0-5/hpf); Mean Corpuscular HGB CONC 34.4 g/dL (32.0-36.0); Mean Corpuscular Hemoglobin 36.3 pg (27.0-31.0); Mean Platelet Volume 7.3 fL (7.4-10.4); Platelet Count 120 thou/uL (130-400); RBC Distribution Width 14.8 % (11.5-14.5); Red Blood Cell (RBC) Count 3.07 mill/uL (4.20-5.40); White Blood Cell (WBC) Count 4.7 thou/uL (4.8-10.8)
[2018-02-23] MEDS ORDERED: Levothyroxine Sodium 25 MCG TAB PO SCH (06:00)
[2018-02-23] MEDS: Promethazine HCl 25 MG/ML VIAL IM/IV PRN (07:28)
[2018-02-23 07:38] VITALS: BP 135/90; TEMP 98.1
[2018-02-23] MEDS: HYDROcodone/Acetaminophen 5/325 mg Tablet PO PRN (09:21)
--- NOTE | 2018-02-23 11:01 | DIS ---
DATE OF ADMISSION: 02/21/2018 DATE OF DISCHARGE: 02/23/2018 PRIMARY CARE PHYSICIAN: [facility] call admission. DISCHARGE DISPOSITION: Home. PRIMARY DISCHARGE DIAGNOSES: 1. Abnormal liver function tests due to alcohol abuse. 2. Hypokalemia, corrected. 3. Mild hypothyroidism. 4. Liver mass, ruled out fatty liver. 5. Urinary tract infection. SECONDARY DISCHARGE DIAGNOSES: Thrombocytopenia, obesity with BMI 35, macrocytosis, alcohol abuse. PRIMARY PROCEDURE/OPERATION: None. RADIOLOGICAL INVESTIGATION: Abdomen and pelvis CT scan showed fatty liver. Chest x-ray was normal. SIGNIFICANT LABORATORY DATA: WBC 4.7, hemoglobin 11.2, MCV 105, platelets 120. Sodium 135, potassiu m 3.5, BUN less than 4, creatinine 0.55, calcium 7.7. TSH 5.99. test negative. AST 85, A LT 14, alkaline phosphatase 122. Urine drug screen positive for opiates and benzos. Urinalysis cons istent with leukocyte esterase trace. Blood culture negative. Urine culture negative. DISCHARGE MEDICATIONS: Omeprazole 40 mg p.o. daily, Cipro 500 mg p.o. b.i.d. for 5 days, Synthroid 2 5 mcg p.o. daily, Zofran ODT 4 mg p.o. q.6 hourly p.r.n. CONTRAINDICATIONS: None. CODE STATUS: FULL CODE. INPATIENT CONSULTANTS: None. ALLERGIES: No known drug allergy. DISCHARGE PLAN: Post hospital, the patient will follow up with primary care physician in 1 week. HOSPITAL COURSE: This is a 32-year-old female who was recently admitted for epigastric abdominal vandana n and we treated as if acute pancreatitis. The next day, the patient had significant clinical improv ement. The patient had all these symptoms started after drinking vodka. She had abnormal electrolyt es that was corrected while in hospital, but patient left against medical advice. During that admiss ion, we did an ultrasound, which suspected for liver mass and that is why initially we tried to do a liver CT scan, but patient refused and left AMA. She came back again after taking care of her person al things and she was readmitted in the hospital. We did CT of the abdomen and pelvis that was negat cande for any liver mass, but it showed fatty liver. At this time, we checked TSH, which showed elevated TSH and that is why we started low dose of Synthr oid medication. The patient was hydrated with IV fluid. She was given symptomatic treatment. We pr ovided counseling to avoid alcohol abuse. She had a mild fever and urinalysis was suggestive of UTI and that is why we treated her with Rocephin while in hospital and Cipro was prescribed upon discharg e. Patient is seen and examined at bedside today. All test results discussed with the patient and her v ital signs are negative. All review of system reviewed with her and negative. Her physical examinat ion is normal. All new medication prescription sent to her pharmacy. The patient is medically stable for discharge today.
== END 2018-02-23 11:51 | disposition home or self-care (01) ==
LOC: EEVIPCON 18:53 → ERS 18:53 → T4-B 22:45
PROVIDERS: ADMIT Hospitalist; ATTEND Hospitalist
DX: R11.2 Nausea with vomiting, unspecified (principal); R10.13 Epigastric pain; R79.89 Other specified abnormal findings of blood chemistry; F10.10 Alcohol abuse, uncomplicated; K58.9 Irritable bowel syndrome, unspecified; E87.6 Hypokalemia; E03.9 Hypothyroidism, unspecified; R16.0 Hepatomegaly, not elsewhere classified; N39.0 Urinary tract infection, site not specified; D69.6 Thrombocytopenia, unspecified; D75.89 Other specified diseases of blood and blood-forming organs; E66.9 Obesity, unspecified; Z68.35 Body mass index [BMI] 35.0-35.9, adult; Z79.899 Other long term (current) drug therapy
CPT/HCPCS: 36415; 71045; 74178; 80048; 80306; 81003; 81015; 83605; 83690; 84443; 84703; 85025; 87040; 87086; 96361; 96365; 96366; 96367; 96372; 96375; 96376; G0378; J0696; J2270; J2405; J2543; J2550; J7050; Q0162